=== PATIENT | female | born 1940 | race Two or more races ===

== ENCOUNTER 2024-02-01 11:14 | Outpatient (AMB) | payer MEDICAID, SELFPAY ==
[2024-02-01 11:17] VITALS: BP 110/65; PULSE 90; RESP 16; TEMP 36.4; O2SAT 93
--- NOTE | 2024-02-01 11:17 | PD.RESCLINIC ---
Vital Signs 02/01/24 11:17 Weight 68.266 kg Weight Measurement Method Standing Scale BP 110/65 Blood Pressure Source Automatic Cuff Blood Pressure Location Left Upper Arm Position Sitting Respiration 16 Pulse 90 Pulse Source Monitor Temp 97.5 F Temp Source Oral Pulse Oximetry (%) 93 L Oxygen Delivery Method Room Air Allergies/Meds Allergies & Medications Allergies No Known Allergies Allergy (Verified 02/01/24 11:18) Medication Reconciliation metformin 1,000 mg tablet (Glucophage) 1,000 mg PO BID #0 tabs 06/21/17 [History Confirmed 02/01/24] atorvastatin 10 mg tablet 10 mg PO QPM 07/16/19 [History Confirmed 02/01/24] donepezil 5 mg tablet 10 mg PO HS 07/16/19 [History Confirmed 02/01/24] montelukast 10 mg tablet 10 mg PO QPM 07/16/19 [History Confirmed 02/01/24] tiotropium bromide 18 mcg capsule with inhalation device (Spiriva with HandiHaler) 1 cap inhalation HS 07/16/19 [History Confirmed 02/01/24] empagliflozin 10 mg tablet (Jardiance) 10 mg PO QDAY 10/06/23 [History Confirmed 02/01/24] gabapentin 300 mg tablet 300 mg PO TID 10/06/23 [History Confirmed 02/01/24] memantine 5 mg tablet 5 mg PO BID 10/06/23 [History Confirmed 02/01/24] venlafaxine 37.5 mg tablet,extended release 24 hr 37.5 mg PO QDAY 10/06/23 [History Confirmed 02/01/24] apixaban 2.5 mg tablet (Eliquis) 5 mg (2 x 2.5 mg) PO BID #60 tabs 10/07/23 [Rx Confirmed 02/01/24] cephalexin 500 mg capsule 500 mg PO BID #12 caps 10/07/23 [Rx Confirmed 02/01/24] ferrous gluconate 236 mg (27 mg iron) tablet 236 mg PO QDAY #30 tabs 10/07/23 [Rx Confirmed 02/01/24] furosemide 20 mg tablet (Lasix) 20 mg PO Q OTHER DAY #30 tabs 10/07/23 [Rx Confirmed 02/01/24] metoprolol succinate 50 mg tablet,extended release 24 hr 50 mg PO QDAY #30 tabs 10/07/23 [Rx Confirmed 02/01/24] MA Intake Visit Data Collection New Patient or Established: Established Patient (seen at [facility] within 3 years) Seen by Clinical Staff ONLY (RN/MA): No Pain Present Currently: No Pain scale:: 0 Pain Scale Used: Peraza-Gomez/Numerical Can Slider Required: No Do You Feel Safe at Home: Yes Authorities Contacted: N/A Smoking Status Smoking Status: Never smoker Immunization / Flu Flu Vaccine in the Last 12 Months: No Flu Vaccine Exclusion Criteria: No Exclusion Criteria Past Medical History Past Medical History NEUROLOGIC: Positive Neurological Disorders and Dementia (age related); Negative Seizures CARDIAC: Positive Cardiac Disorders, Hypercholesterolemia and Hypertension; Negative Congestive Heart Failure RESPIRATORY: Positive Bronchitis; Negative Chronic Obstructive Pulmonary Disease (COPD) or Asthma GASTROINTESTINAL: Positive Gastrointestinal Disorders GENITOURINARY: Negative Genitourinary Disorders or Renal Disease REPRODUCTIVE: Positive Previous Pregnancies MUSCULOSKELETAL: Positive Arthritis ENDOCRINE: Positive Endocrine Disorders and Diabetes Mellitus Type 2; Negative Diabetes Mellitus Type 1 HEMATOLOGIC: Negative Blood Disorders or Sickle Cell Disease OTHER HISTORY: Negative Hospitalization, Autoimmune Disease, Down Syndrome, Developmental Delay, Shingles, Falls, Blood Transfusions, Blood Transfusion Reaction or Anesthesia Reactions Family History FAMILY HISTORY: Negative Family Psychiatric Problems, Family Respiratory Disorders, Family Cardiac Disorders, Family Gastrointestinal Problems, Family Cancer, Family Surgery or Family Anesthesia Reaction Social History SMOKING STATUS: Smoking status: Never smoker ALCOHOL: Alcohol Intake: Never HOUSING: Housing: House LIVES WITH: Lives With: Family Office Procedures [facility] Level of Care Nursing/Assessment Patient Status: Established Patient Nursing Assessment/Reassessment: Medication Reconciliation, Update PMH in EMR and Vital Signs Coordination of Care: Complex Care and Chronic Disease 1-5, Education Complex Pt/Fam, Results/Orders obtained and Staff clarify orders Established Patient Charge Established Patient Point Assignment: 90 Established Patient Point Charge: Level 3 (80-115)
--- NOTE | 2024-03-02 02:16 | PD.RESCLINIC ---
Vital Signs 02/01/24 11:17 Weight 68.266 kg Weight Measurement Method Standing Scale BP 110/65 Blood Pressure Source Automatic Cuff Blood Pressure Location Left Upper Arm Position Sitting Respiration 16 Pulse 90 Pulse Source Monitor Temp 97.5 F Temp Source Oral Pulse Oximetry (%) 93 L Oxygen Delivery Method Room Air Allergies/Meds Allergies & Medications Allergies No Known Allergies Allergy (Verified 02/01/24 11:18) Medication Reconciliation metformin 1,000 mg tablet (Glucophage) 1,000 mg PO BID #0 tabs 06/21/17 [History Confirmed 02/01/24] atorvastatin 10 mg tablet 10 mg PO QPM 07/16/19 [History Confirmed 02/01/24] donepezil 5 mg tablet 10 mg PO HS 07/16/19 [History Confirmed 02/01/24] montelukast 10 mg tablet 10 mg PO QPM 07/16/19 [History Confirmed 02/01/24] tiotropium bromide 18 mcg capsule with inhalation device (Spiriva with HandiHaler) 1 cap inhalation HS 07/16/19 [History Confirmed 02/01/24] empagliflozin 10 mg tablet (Jardiance) 10 mg PO QDAY 10/06/23 [History Confirmed 02/01/24] gabapentin 300 mg tablet 300 mg PO TID 10/06/23 [History Confirmed 02/01/24] memantine 5 mg tablet 5 mg PO BID 10/06/23 [History Confirmed 02/01/24] venlafaxine 37.5 mg tablet,extended release 24 hr 37.5 mg PO QDAY 10/06/23 [History Confirmed 02/01/24] apixaban 2.5 mg tablet (Eliquis) 5 mg (2 x 2.5 mg) PO BID #60 tabs 10/07/23 [Rx Confirmed 02/01/24] cephalexin 500 mg capsule 500 mg PO BID #12 caps 10/07/23 [Rx Confirmed 02/01/24] ferrous gluconate 236 mg (27 mg iron) tablet 236 mg PO QDAY #30 tabs 10/07/23 [Rx Confirmed 02/01/24] furosemide 20 mg tablet (Lasix) 20 mg PO Q OTHER DAY #30 tabs 10/07/23 [Rx Confirmed 02/01/24] metoprolol succinate 50 mg tablet,extended release 24 hr 50 mg PO QDAY #30 tabs 10/07/23 [Rx Confirmed 02/01/24] [place] Intake Visit Data Collection Do You Feel Safe at Home: Yes Smoking Status Smoking Status: Never smoker Past Medical History Past Medical History NEUROLOGIC: Positive Neurological Disorders and Dementia (age related); Negative Seizures CARDIAC: Positive Cardiac Disorders, Hypercholesterolemia and Hypertension; Negative Congestive Heart Failure RESPIRATORY: Positive Bronchitis; Negative Chronic Obstructive Pulmonary Disease (COPD) or Asthma GASTROINTESTINAL: Positive Gastrointestinal Disorders GENITOURINARY: Negative Genitourinary Disorders or Renal Disease REPRODUCTIVE: Positive Previous Pregnancies MUSCULOSKELETAL: Positive Arthritis ENDOCRINE: Positive Endocrine Disorders and Diabetes Mellitus Type 2; Negative Diabetes Mellitus Type 1 HEMATOLOGIC: Negative Blood Disorders or Sickle Cell Disease OTHER HISTORY: Negative Hospitalization, Autoimmune Disease, Down Syndrome, Developmental Delay, Shingles, Falls, Blood Transfusions, Blood Transfusion Reaction or Anesthesia Reactions Family History FAMILY HISTORY: Negative Family Psychiatric Problems, Family Respiratory Disorders, Family Cardiac Disorders, Family Gastrointestinal Problems, Family Cancer, Family Surgery or Family Anesthesia Reaction Social History SMOKING STATUS: Smoking status: Never smoker ALCOHOL: Alcohol Intake: Never HOUSING: Housing: House LIVES WITH: Lives With: Family Office Procedures [facility] Level of Care Nursing/Assessment Patient Status: Established Patient Nursing Assessment/Reassessment: Medication Reconciliation, Update PMH in EMR and Vital Signs Coordination of Care: Complex Care and Chronic Disease 1-5, Education Complex Pt/Fam, Results/Orders obtained and Staff clarify orders Established Patient Charge Established Patient Point Assignment: 90 Established Patient Point Charge: EP Level 3 (80-115)
== END 2024-02-01 11:58 | disposition home or self-care (01) ==
LOC: HODAHC 11:14
PROVIDERS: Supervising Provider Internal Medicine Cardiovascular Disease; Visit Provider Internal Medicine Cardiovascular Disease
DX: Z76.89 Persons encountering health services in other specified circumstances (principal)
CPT/HCPCS: 99213; G0463

== ENCOUNTER 2024-05-12 19:41 | Observation (INO) | payer MEDICAID, SELFPAY ==
[2024-05-12 21:02] VITALS: BP 129/70; PULSE 92; RESP 16; TEMP 36.4; O2SAT 96
[2024-05-12 21:05] VITALS: BMI 32.9
--- NOTE | 2024-05-12 21:15 | XR_ITS ---
Examination: CT brain head without contrast. 2-D sagittal coronal reconstructions Date and time of exam:May 12, 2024 2119 hrs. Indications: Headaches dizziness and nausea today CTDI: vol (mGy):45.5 DLP: (mGycm):940 Technique: Multiple CT axial sections of the brain have been obtained, 5 mm slice thickness. Contrast has not been administered. 2-D sagittal, coronal reconstructions have been obtained Low dose protocols were performed. One or more of the following dose reduction techniques were used; automated exposure control, adjustment of the mA and/or KV according to patient size, use of iterative reconstruction technique. Findings: No significant ventricular enlargement. Chronic frontal subdural hygromas, 9 mm thickness of the left 8 mm thickness on the right, no mass effect Intra-axial or extra-axial hemorrhage density is not seen. No mass effect or midline shift Basal cisterns are not remarkable. Fourth ventricle is midline. Cranial vault intact. Impression: Negative for acute hemorrhage, mass effect or midline shift
--- NOTE | 2024-05-12 21:15 | EKG_ITS ---
[facility] Test Date: 2024-05-12 Pat Name: JUDY OSORIO Department: Room: - Gender: Female [employer] Apprentice: : [id number] Requested By: Ashish Fox ([facility]) Order Number: [id number] Reading MD: Ashish Fox ([facility]) Measurements Intervals [place] Rate: 83 P: RI: QRS: 45 QRSD: 90 T: 33 QT: 384 QTc: 454 Interpretive Statements ATRIAL FIBRILLATION NONSPECIFIC T-WAVE ABNORMALITY ABNORMAL RHYTHM ECG Compared to ECG 10/04/2023 17:44:59 T-wave abnormality now present /store/S0/[id number]/[id number].pdf
--- NOTE | 2024-05-12 21:15 | XR_ITS ---
Examination: PA lateral chest 2 views Technique: Upright PA lateral chest 2 views Exam date and time: May 12, 20242123 hrs. Comparison October 04, 2023 Indications: Hypertension SOB today. Findings: Mild enlargement cardiac contour Prominent central pulmonary arteries Mild vascular congestion Mild opacity right base No driss pulmonary edema Impression: Mild vascular congestion Suspicious for pulmonary artery hypertension Mild opacity right base, consider early pneumonia, clinical correlation advised
--- NOTE | 2024-05-12 21:15 | PD.EDRME ---
Rapid Medical Screening Exam RME Arrival date/time: 05/12/24 19:41 83-year-old female presents emergency department complaining of headache and dizziness with nausea and vomiting that is been ongoing since May 05. Chief Complaint: Headache Time Seen by Provider: 05/12/24 21:12 Vital signs: Vital Signs Temperature 97.5 F 05/12/24 21:02 Pulse Rate 92 05/12/24 21:02 Respiratory Rate 16 05/12/24 21:02 Blood Pressure 129/70 05/12/24 21:02 Pulse Oximetry (%) 96 05/12/24 21:02 Oxygen Delivery Method Room Air 05/12/24 21:02 Vital signs reviewed by provider: Yes
[2024-05-12 22:11] LABS: Basophils # (Auto) 0.1 Thou/mm3 (0.0-0.2); Basophils % (Auto) 1 % (0-2.5); Eosinophils # (Auto) 0.3 Thou/mm3 (0.0-0.5); Eosinophils % (Auto) 3 % (0-10); Hematocrit 42.3 % (36.0-46.0); Hemoglobin 13.2 g/dL (12.0-16.0); Immature Granulocytes % (Auto) 1 % (0-0); Immature Granulocytes Auto 0.04 Thou/mm3 (0.00-0.00); Lymphocytes # (Auto) 1.7 Thou/mm3 (1.0-4.8); Lymphocytes % (Auto) 19 % (10-50); Mean Corpuscular HGB Conc 31.2 g/dl (31.0-37.0); Mean Corpuscular Hemoglobin 28.3 pg (25.0-35.0); Mean Corpuscular Volume 91 fL (80-100); Monocytes # (Auto) 0.8 Thou/mm3 (0.0-0.8); Monocytes % (Auto) 10 % (0-12); Neutrophils # (Auto) 5.9 Thou/mm3 (1.8-7.7); Neutrophils % (Auto) 67 % (37-80); Nucleated Red Blood Cell % 0 /100 WBC (0); Platelet Count 393 Thou/mm3 (140-440); RDW Standard Deviation 48.4 fL (36.4-46.3); Red Blood Count 4.67 Miln/mm3 (4.00-5.20); White Blood Count 8.8 Thou/mm3 (3.6-11.0)
[2024-05-12 22:28] LABS: B-Type Natriuretic Peptide 136 pg/mL (0-100)
[2024-05-12 22:30] LABS: Alanine Aminotransferase 12 U/L (10-49); Alkaline Phosphatase 77 U/L (46-116); Anion Gap 8 (7-16); Aspartate Amino Transferase 19 U/L (0-34); BUN/Creatinine Ratio 14 Ratio (12-20); Bilirubin,Total 0.3 mg/dL (0.3-1.2); Blood Urea Nitrogen 13 mg/dL (9-23); Carbon Dioxide 31.7 mMol/L (20.0-31.0); Chloride 95 mMol/L (98-107); Creatinine (Component) 0.9 mg/dL (0.6-1.3); Estimated Creatinine Clearance 42.2 mL/min (>60); Glucose 188 mg/dL (74-106); Magnesium 1.9 mg/dL (1.6-2.6); Osmolality,Calculated 275 (275-295); Potassium 3.8 mMol/L (3.4-5.1); Sodium 135 mMol/L (136-145); Troponin I < 0.020 ng/mL (0.0-0.045); eGFR > 60 See Note
[2024-05-12 22:41] LABS: INR 1.1 (0.9-1.3); Partial Thromboplastin Time 30.1 Seconds (22.0-36.0); Prothrombin Time 11.9 Seconds (9.0-12.2)
[2024-05-13] VITALS (10 sets, daily range): BP systolic 99–128; BP diastolic 54–79; PULSE 63–94; RESP 14–95; TEMP 36.1–36.9; O2SAT 93–99; BMI 32.9
[2024-05-13 00:28] LABS: Collection Type, Urine Clean Catch
[2024-05-13 00:45] LABS: Bilirubin,Urine Negative (Negative); Blood,Urine Negative (Negative); Clarity,Urine Clear (Clear/Hazy); Color,Urine Lt-Yellow (Lt Yel-Yel); Glucose, Urine 4+ (Negative); Ketones,Urine Negative (Negative); Leukocyte Esterase,Urine Positive (Negative); Nitrite,Urine Negative (Negative); PH,Urine 6.5 (5.0-7.0); Protein,Urine Negative (Neg - Trace); RBC,Urine 6 /hpf (0-3); Squamous Epithelial Cell,Urine 1 /hpf (0-5); Urobilinogen,Urine Negative mg/dL (0.0-1.0); WBC,Urine 22 /hpf (0-5)
--- NOTE | 2024-05-13 02:31 | XR_ITS ---
Examination: CT abdomen with intravenous contrast CT pelvis with intravenous contrast 2-D coronal reconstructions 2-D sagittal reconstructions Date and time of exam:May 11, 2024 0437 hrs. Comparison October 24, 2023 Indications: Epigastric pain onset today. CTDI: vol (mGy) 8.25 DLP: (mGycm) 438 Technique: Multiple axial sections of the abdomen and pelvis have been obtained. 64 slice high-resolution scanner used. 3 mm axial sections have been obtained, post intravenous injection 60 cc [id number] 2-D sagittal, coronal reconstructions obtained. Low dose protocols were performed. One or more of the following dose reduction techniques were used; automated exposure control, adjustment of the mA and/or KV according to patient size, use of iterative reconstruction technique. Findings: Mild to moderate enlargement cardiac contour Cirrhosis with moderate hepatomegaly, nodular contour of the liver with fatty infiltration Mild ascites No splenic or pancreatic lesion No hydronephrosis There is fluid filled small bowel loops in the left upper abdomen with wall thickening No definite appendicitis but clinical correlation advised Aortic calcification No bowel obstruction Atrophic uterus Urinary bladder intact Impression: Cirrhosis with moderate hepatomegaly Mild probable hepatic enteropathy
[2024-05-13] MEDS: cefTRIAXone/D5w 1gm IV premix 50 ML IV (02:55)
[2024-05-13 03:32] LABS: Troponin I < 0.020 ng/mL (0.0-0.045)
--- NOTE | 2024-05-13 04:42 | PRELIM_ITS ---
CT scan of the abdomen and pelvis with intravenous contrast (axial sections with sagittal and coronal reformats) May 13, 2024 at 0347 hoursClinical History: Epigastric abdominal pain.Comparison: No prior study is available for comparison. Findings:Bibasilar atelectasis is seen. There is mild hepat omegaly with relative nodular contour which may represent cirrhosis. There is hepatic hypodensities t oo small to characterize. There is left renal hypodensity too small to characterize. The gallbladder, pancreas, spleen and adrenals are unremarkable.There is mild wall thickening of proximal jejunal loo ps.No evidence of bowel obstruction. The appendix is not visualized. There is no mesenteric or retrop eritoneal adenopathy.The urinary bladder is incompletely distended at the time of the examination and appears mildly thick walled. There is atheromatous calcification of aorta; no evidence of aneurysm.T here is mild ascites. There is thickening and stranding of omental fat.There is no free air.There is diffuse osteopenia.There is anterolisthesis of L5 on S1.Impression:1. Mild wall thickening of proxima l jejunal loops; which may represent enteritis.2. Mild ascites with omental fat stranding. Infectious process cannot be excluded. Recommend clinical correlation. 3. Other findings as described above. Re port Electronically Signed By: Satya Vila 05/13/2024 4:40:59 AM [EST]
[2024-05-13 05:42] LABS: Basophils # (Auto) 0.1 Thou/mm3 (0.0-0.2); Basophils % (Auto) 1 % (0-2.5); Eosinophils # (Auto) 0.4 Thou/mm3 (0.0-0.5); Eosinophils % (Auto) 4 % (0-10); Hematocrit 40.7 % (36.0-46.0); Immature Granulocytes % (Auto) 0 % (0-0); Immature Granulocytes Auto 0.03 Thou/mm3 (0.00-0.00); Lymphocytes # (Auto) 1.9 Thou/mm3 (1.0-4.8); Lymphocytes % (Auto) 18 % (10-50); Mean Corpuscular HGB Conc 31.9 g/dl (31.0-37.0); Mean Corpuscular Hemoglobin 28.3 pg (25.0-35.0); Mean Corpuscular Volume 89 fL (80-100); Monocytes # (Auto) 0.9 Thou/mm3 (0.0-0.8); Monocytes % (Auto) 9 % (0-12); Neutrophils # (Auto) 7.2 Thou/mm3 (1.8-7.7); Neutrophils % (Auto) 68 % (37-80); Nucleated Red Blood Cell % 0 /100 WBC (0); Platelet Count 344 Thou/mm3 (140-440); RDW Standard Deviation 47.1 fL (36.4-46.3); Red Blood Count 4.59 Miln/mm3 (4.00-5.20); White Blood Count 10.5 Thou/mm3 (3.6-11.0)
--- NOTE | 2024-05-13 05:46 | ESHP_ITS ---
Documentation for date of: 05/13/24 [facility] History of Present Illness History of present illness: The patient is an 83-year-old female with a past medical history of hypertension, diabetes, HFpEF, A-fib, hyperlipidemia and dementia who presents to the ED by daughter on 05/12/2024 with complaints of nausea vomiting, headache, dizziness and confusion. Per daughter, the patient was in her usual state of health until 05/05/2024 when she complained of nausea and had about 2 episodes of vomiting, nonbloody and nonbilious. Shortly after this, patient reported right-sided dull headache no radiation as well as some lightheadedness. The symptoms, including vomiting have since resolved. However, patient continues to be confused and still has intermittent headaches and mild abdominal pain. Daughter also suspects that she is having visual hallucinations. At baseline, patient is said to be AAOx3 and able to carry out activities of daily living independently. However since onset of the symptoms, she has been unable to do any of the above and additionally is said to have an unsteady gait when she walks. There is no reported subjective fever or chills, cough or chest pain, difficulty breathing. She denies dysuria or any change in frequency or characteristics of urine. ED course: In the ED, patient was afebrile and saturating 97% on room air. Labs showed WBC 8.8 Hgb 13 point PLT 393 NA 130 5K3.8 CL 95 bicarb 31.7 BUN 13 CR 0.9 glucose 189 BNP 136. UA was also done and showed 4+ glucose and 22 WBCs but no bacteria Head CT was done which was negative for acute processes and chest x-ray showed mild vascular congestion with suspicion of PAH. EKG done showed A-fib flutter pattern, rate controlled preliminary read of CT abdomen pelvis showed some suspicion of enteritis. Patient is being admitted for acute encephalopathy rule out/management. Review of Systems Review of Systems Narrative Review of Systems: GENERAL: Denies fevers/chills or diaphoresis. HEENT: Admits headache, denies visual/hearing changes. Denies nasal discharge. NEURO: Denies unusual weakness or difficulty speaking. Admits unsteadiness in walking/gait CARDIO: Denies chest pain or palpitations. PULM: Denies SOB, coughing, or wheezing. GI: Admits resolved abdominal pain, nausea and vomiting URO: Denies burning/itching/pain/urinary changes. MSK/EXT/SKIN: Denies joint/skeletal/muscle pain, issues/changes in upper or lower extremities, itchiness, or superficial pain. PSYCH: Cooperative, pleasant mood & affect. Exam Vital Signs Temp Pulse Resp BP Pulse Ox O2 Del Method 97.5 F 77 15 128/69 94 L Room Air 05/12/24 21:02 05/13/24 02:47 05/13/24 02:47 05/13/24 02:47 05/13/24 02:47 05/13/24 02:47 Narrative Exam GENERAL: AAOX1, confused, unable to answer some questions but follows commands. NEURO:5/5 strength in all extremities, no numbness or loss of sensation. Gait unexamined. HEENT: Dry mucosa. Eyes open, symmetrical, & clear. CARDIO: No chest pain on palpation. Heart RRR, no obvious murmurs. PULM: No noted coughing/dyspnea. Lungs CTA B/L. GI: Abdomen soft, nondistended, no pain on palpation. BSx4. URO/FUNERAL PRE ARRANGEMENT SPECIALIST:: No further abnormalities noted. SKIN/MSK/EXT: No wounds/rashes/edema/amputations, no pain on palpation. Pedal pulses present B/L. Results: Labs 05/13/24 05:17 05/12/24 21:56 Labs: Short CBC 05/12/24 05/13/24 Range/Units 21:56 05:17 WBC 8.8 10.5 (3.6-11.0) Thou/mm3 Hgb 13.2 13.0 (12.0-16.0) g/dL Hct 42.3 40.7 (36.0-46.0) % Plt Count 393 344 D (140-440) Thou/mm3 BMP 05/12/24 21:56 Sodium 135 L Potassium 3.8 Chloride 95 L Carbon Dioxide 31.7 H BUN 13 Creatinine 0.9 Glucose 188 H Calcium 10.0 Cardiac Enzymes 05/12/24 05/13/24 Range/Units 21:56 02:48 Troponin I < 0.020 < 0.020 (0.0-0.045) ng/mL Liver Function 05/12/24 Range/Units 21:56 Total Bilirubin 0.3 (0.3-1.2) mg/dL AST 19 (0-34) U/L ALT 12 (10-49) U/L Alkaline Phosphatase 77 (46-116) U/L Albumin 4.0 (3.4-4.8) gm/dL Urine 05/13/24 Range/Units 00:20 Urine Color Lt-Yellow (Lt Yel-Yel) Urine Clarity Clear (Clear/Hazy) Urine pH 6.5 (5.0-7.0) Ur Specific [place] 1.030 (1.001-1.035) Urine Protein Negative (Neg - Trace) Urine Glucose (UA) 4+ A (Negative) Quality Measures Quality Measures VTE prophylaxis Advance care planning discussed with:: child Medications Home Medications and Allergies Home Medications ?Medication ?Instructions ?Recorded ?Confirmed ?Type metformin 1,000 mg tablet 1,000 mg PO BID #0 tabs 06/21/17 02/01/24 History (Glucophage) atorvastatin 10 mg tablet 10 mg PO QPM 07/16/19 02/01/24 History donepezil 5 mg tablet 10 mg PO HS 07/16/19 02/01/24 History montelukast 10 mg tablet 10 mg PO QPM 07/16/19 02/01/24 History tiotropium bromide 18 mcg capsule 1 cap inhalation HS 07/16/19 02/01/24 History with inhalation device (Spiriva with HandiHaler) empagliflozin 10 mg tablet 10 mg PO QDAY 10/06/23 02/01/24 History (Jardiance) gabapentin 300 mg tablet 300 mg PO TID 10/06/23 02/01/24 History memantine 5 mg tablet 5 mg PO BID 10/06/23 02/01/24 History venlafaxine 37.5 mg 37.5 mg PO QDAY 10/06/23 02/01/24 History tablet,extended release 24 hr Allergies Allergy/AdvReac Type Severity Reaction Status Date / Time No Known Allergies Allergy Verified 02/01/24 11:18 Visit Medications Acetaminophen (Acetaminophen 325 Mg Tablet) 650 mg PO Q6H PRN PRN Reason: Fever >101.5 or Pain 1-3 Stop: 06/12/24 05:17 Apixaban (Apixaban 2.5 Mg Tablet) 5 mg PO BID [facility] Stop: 06/12/24 08:59 Atorvastatin Calcium (Atorvastatin Calcium 10 Mg Tablet) 10 mg PO HS [facility] Stop: 06/12/24 20:59 Dextrose (Dextrose 50%-Water Inj 50 Ml Syringe) 25 ml IV Q15MIN PRN PRN Reason: BG 50-70 responsive npo pt Stop: 06/12/24 05:25 Dextrose (Dextrose 50%-Water Inj 50 Ml Syringe) 50 ml IV Q15MIN PRN PRN Reason: BG <50 OR BG <70 & pt unresponsive Stop: 06/12/24 05:25 Donepezil HCl (Donepezil Hcl 5 Mg Tablet) 10 mg PO HS [facility] Stop: 06/12/24 20:59 Duloxetine HCl (Duloxetine Hcl 30 Mg Capsule) 30 mg PO BID Y[facility] Stop: 06/12/24 08:59 Glucagon (Glucagon Inj 1 Mg Vial) 1 mg IM Q15MIN PRN PRN Reason: BG <70, and no IV access Sodium Chloride (Ns) 1,000 mls @ 75 mls/hr IV .[id number] [facility] Stop: 05/13/24 18:49 Ceftriaxone Sodium/Dextrose (Rocephin/D5w 1gm Iv Premix) 50 mls @ 100 mls/hr IV QDAY [facility] Stop: 05/20/24 05:23 Insulin Human Lispro (Insulin Lispro (Admelog) 1 Unit/0.01 Ml Unit) 0 unit SC AC YUNIER; Protocol Stop: 06/12/24 07:29 Memantine (Memantine Hcl 5 Mg Tablet) 10 mg PO BID [facility] Stop: 06/12/24 08:59 Metoprolol Succinate (Metoprolol Succinate Xl 25 Mg Tabcr) 50 mg PO QDAY [facility] Stop: 06/12/24 08:59 Ondansetron HCl (Ondansetron Inj 2 Mg/Ml Inj 2 Ml) 4 mg IV Q6H PRN; Protocol PRN Reason: NAUSEA OR VOMITING Stop: 06/12/24 05:17 Discontinued Medications Apixaban (Apixaban 2.5 Mg Tablet) 2.5 mg PO BID [facility] Stop: 06/12/24 08:59 Ceftriaxone Sodium/Dextrose (Rocephin/D5w 1gm Iv Premix) 50 mls @ 100 mls/hr IV X1 ONE Stop: 05/13/24 03:01 Last Infusion: 05/13/24 03:54 Dose: Infused Assessment & Plan Assessment Summary: The patient is an 83-year-old female with a past medical history of hypertension, diabetes, HFpEF, A-fib, hyperlipidemia and dementia who presents to the ED by daughter on 05/12/2024 with complaints of nausea vomiting, headache, dizziness and confusion. Patient is being admitted for acute encephalopathy rule out/management. #Acute Encephalopathy #History of dementia #?UTI The patient presented with an 8day history of nausea, vomiting, headache, dizziness and some confusion. Per daughter at bedside, she is AAOX3 at baseline and able to carry out a lot of her daily activities semi-independently. However since onset of symptoms, she has been unable to do any of her usual activites. Daughter additionally noted that she has been unstable and now staggers when she walks. She reports that her confusion has gotten progressively worse and suspects that she might also be having visuual hallucinations as she seems to be attempting to grab objects/people that are not in the room, Imaging on admission has been negative so far, except for a suspicion of enteritis as seen on CTAP. UA shows 22WBCs and positive esterase, but no bacteria. CBC and CMP unremarkable. Plan: -Admit to [facility] OBS -IV ceftriaxone 1 g daily -Ammonia -TSH #History of hypertension #History of hyperlipidemia The patient is on losartan hydrochlorothiazide as well as metoprolol and atorvastatin .-Restart home meds #History of A-fib Patient has a history of A-fib, rate controlled. She is not on any rate control medications currently, however takes Eliquis 5 mg twice daily restart -Restart home meds #History of dementia The patient takes donepezil and memantine -Restart home meds #History of diabetes Patient has a history of diabetes and is on Jardiance 10 mg daily. Last A1c done was on 09/2023-6.5. Glucose on admission-188 Plan: -ISS -Glucose check AC -Hypoglycemic protocols in place -HbA1c Health maintenance: Dispo: MedSurg Diet: Dysphagia DVT: Eliquis Nova: None Lines: Peripheral Med Rec: Pending, f/u PT: Ordered Code: Full Case was discussed with attending physician, Dr Jerod James MD PGY-1 Attending Provider Attestation/Addendum Pt was evaluated and plan formulated together with the housestaff team. I have reviewed the residents note above and agree with most of its content. Please refer to the residents note for additional details.
[2024-05-13 05:50] LABS: Ammonia < 10 uMol/L (11-32)
[2024-05-13 06:09] LABS: Glucose Estimated Average 169 mg/dL (80-131); Hemoglobin A1C 7.5 % Hgb (4.8-6.0)
[2024-05-13 06:14] LABS: Alanine Aminotransferase 10 U/L (10-49); Albumin/Globulin Ratio 1.1 (1.2-2.2); Alkaline Phosphatase 69 U/L (46-116); Anion Gap 7 (7-16); Aspartate Amino Transferase 14 U/L (0-34); BUN/Creatinine Ratio 19 Ratio (12-20); Bilirubin,Total 0.3 mg/dL (0.3-1.2); Blood Urea Nitrogen 15 mg/dL (9-23); Calcium 9.2 mg/dL (8.3-10.6); Calcium (Corrected) 9.2 mg/dL (8.5-10.1); Carbon Dioxide 30.8 mMol/L (20.0-31.0); Chloride 96 mMol/L (98-107); Creatinine (Component) 0.8 mg/dL (0.6-1.3); Estimated Creatinine Clearance 47.5 mL/min (>60); Globulin 3.6 gm/dL (2.3-3.5); Glucose 134 mg/dL (74-106); Magnesium 1.9 mg/dL (1.6-2.6); Osmolality,Calculated 271 (275-295); Potassium 4.1 mMol/L (3.4-5.1); Procalcitonin < 0.04 ng/ml (0.0-0.49); Sodium 134 mMol/L (136-145); Total Protein 7.6 gm/dL (5.7-8.2); eGFR > 60 See Note
[2024-05-13] MEDS: SODIUM CHLORIDE 0.9% 1000 ML 1,000 ML 75 ML IV (06:22)
[2024-05-13] MEDS: METOPROLOL SUCCINATE XL 25 MG TABCR 50 MG PO (09:21)
[2024-05-13] MEDS: APIXABAN 2.5 MG TABLET 5 MG PO ×2 (09:21→20:33)
--- NOTE | 2024-05-13 09:34 | PC.NURSE ---
report given to Mone aldana, patient will transfer to room 361
[2024-05-13] MEDS: MEMANTINE HCL 5 MG TABLET 10 MG PO ×2 (10:40→20:33)
[2024-05-13] MEDS: DULoxetine HCL 30 MG CAPSULE PO ×2 (10:40→20:33)
--- NOTE | 2024-05-13 11:58 | ESPR_ITS ---
<Statement entered by Eddie Oglesby MD - 05/29/24 09:28> I reviewed above note and agree with findings and plans. I have also personally examined the patient with medicine team and went over assessment and plan with medical team including news internship and resident physician. Documentation for date of: 05/13/24 Subjective Subjective Interval history: Patient speaks [place](indigineous dialect spoken in [place]). Daughter who speaks french is at bedside. She states that her only complaints now are these episodes during her sleep while laying down where she reaches out. She is also weak and off balance when she walks compared to previously. She has mild abdominal pain that she describes as bloating. She states that she has been told before that she has cirrhosis. She saw a GI doctor who told her that it wasn't actually liver cirrhosis. Exam Vital Signs Temp Pulse Resp BP Pulse Ox O2 Del Method 97.1 F 83 18 123/79 95 Room Air 05/13/24 10:36 05/13/24 10:36 05/13/24 10:36 05/13/24 10:36 05/13/24 10:36 05/13/24 10:36 Narrative Exam General: Well appearing, well nourished, in no distress HEENT: Normocephalic, atraumatic, conjunctiva clear, sclera non-icteric, EOM intact Heart: Regular rate and rhythm, no murmur or gallop Lungs: Clear to auscultation, no wheezes Abdomen: soft, non tender, non distended Extremities: No amputations or deformities, cyanosis, edema or varicosities, peripheral pulses intact Neurologic: No focal neuro deficits, moves all extremities spontaneously Psychiatric: Cooperative, normal mood and affect. Objective Labs 05/14/24 04:28 05/14/24 04:28 Labs: Laboratory Results - last 24 hr 05/12/24 05/13/24 05/13/24 21:56 00:20 02:48 WBC 8.8 RBC 4.67 Hgb 13.2 Hct 42.3 MCV 91 MCH 28.3 MCHC 31.2 RDW Std Deviation 48.4 H Plt Count 393 Neut % (Auto) 67 Lymph % (Auto) 19 Eddy % (Auto) 10 Eos % (Auto) 3 Baso % (Auto) 1 Neut # (Auto) 5.9 Lymph # (Auto) 1.7 Eddy # (Auto) 0.8 Eos # (Auto) 0.3 Baso # (Auto) 0.1 Immature Gran # (Auto) 0.04 H Absolute Nucleated RBC 0.00 Immature Gran % 1 H Nucleated RBC % 0 PT 11.9 INR 1.1 APTT 30.1 Sodium 135 L Potassium 3.8 Chloride 95 L Carbon Dioxide 31.7 H Anion Gap 8 BUN 13 Creatinine 0.9 Estim Creat Clear Calc 42.2 L eGFR > 60 BUN/Creatinine Ratio [address] Glu mg/dL Hemoglobin A1c Calculated Osmolality 275 Calcium 10.0 Corrected Calcium 10.0 Magnesium 1.9 Total Bilirubin 0.3 AST 19 ALT 12 Alkaline Phosphatase 77 Ammonia Troponin I < 0.020 < 0.020 B-Natriuretic Peptide 136 H Total Protein 8.0 Albumin 4.0 Globulin 4.0 H Albumin/Globulin Ratio 1.0 L Procalcitonin TSH Ur Collection Type Clean Catch Urine Color Lt-Yellow Urine Clarity Clear Urine pH 6.5 Ur Specific [place] 1.030 Urine Protein Negative Urine Glucose (UA) 4+ A Urine Ketones Negative Urine Blood Negative Urine Nitrite Negative Urine Bilirubin Negative Urine Urobilinogen (Auto) Negative Ur Leukocyte Esterase Positive Urine RBC 6 H Urine WBC 22 H Ur Squamous Epith Cells 1 Urine Bacteria None 05/13/24 05:17 WBC 10.5 RBC 4.59 Hgb 13.0 Hct 40.7 MCV 89 MCH 28.3 MCHC 31.9 RDW Std Deviation 47.1 H Plt Count 344 D Neut % (Auto) 68 Lymph % (Auto) 18 Eddy % (Auto) 9 Eos % (Auto) 4 Baso % (Auto) 1 Neut # (Auto) 7.2 Lymph # (Auto) 1.9 Eddy # (Auto) 0.9 H Eos # (Auto) 0.4 Baso # (Auto) 0.1 Immature Gran # (Auto) 0.03 H Absolute Nucleated RBC 0.00 Immature Gran % 0 Nucleated RBC % 0 PT INR APTT Sodium 134 L Potassium 4.1 Chloride 96 L Carbon Dioxide 30.8 Anion Gap 7 BUN 15 Creatinine 0.8 Estim Creat Clear Calc 47.5 L eGFR > 60 BUN/Creatinine Ratio 19 Glucose [address] Glu mg/dL 169 H Hemoglobin A1c 7.5 H Calculated Osmolality 271 L Calcium 9.2 Corrected Calcium 9.2 Magnesium 1.9 Total Bilirubin 0.3 AST 14 ALT 10 Alkaline Phosphatase 69 Ammonia < 10 L Troponin I B-Natriuretic Peptide Total Protein 7.6 Albumin 4.0 Globulin 3.6 H Albumin/Globulin Ratio 1.1 L Procalcitonin < 0.04 TSH 1.80 Ur Collection Type Urine Color Urine Clarity Urine pH Ur Specific [place] Urine Protein Urine Glucose (UA) Urine Ketones Urine Blood Urine Nitrite Urine Bilirubin Urine Urobilinogen (Auto) Ur Leukocyte Esterase Urine RBC Urine WBC Ur Squamous Epith Cells Urine Bacteria Quality Measures Quality Measures VTE prophylaxis Advance care planning discussed with:: patient and child Assessment & Plan Assessment Current Active Medications: Generic Name Dose Route Start Last Admin Trade Name Freq PRN Reason Stop Dose Admin Acetaminophen 650 mg 05/13/24 05:18 Acetaminophen 325 Mg Tablet PO 06/12/24 05:17 Q6H PRN Fever >101.5 or Pain 1-3 Apixaban 5 mg 05/13/24 09:00 05/13/24 09:21 Apixaban 2.5 Mg Tablet PO 06/12/24 08:59 5 mg BID YUNIER Administration Atorvastatin Calcium 10 mg 05/13/24 21:00 Atorvastatin Calcium 10 Mg Tablet PO 06/12/24 20:59 HS YUNIER Dextrose 25 ml 05/13/24 05:26 Dextrose 50%-Water Inj 50 Ml Syringe IV 06/12/24 05:25 Q15MIN PRN BG 50-70 responsive npo pt Dextrose 50 ml 05/13/24 05:26 Dextrose 50%-Water Inj 50 Ml Syringe IV 06/12/24 05:25 Q15MIN PRN BG <50 OR BG <70 & pt unresponsive Donepezil HCl 10 mg 05/13/24 21:00 Donepezil Hcl 5 Mg Tablet PO 06/12/24 20:59 HS YUNIER Duloxetine HCl 30 mg 05/13/24 09:00 05/13/24 10:40 Duloxetine Hcl 30 Mg Capsule PO 06/12/24 08:59 30 mg BID YUNIER Administration Glucagon 1 mg 05/13/24 05:26 Glucagon Inj 1 Mg Vial IM Q15MIN PRN BG <70, and no IV access Sodium Chloride 1,000 mls @ 75 mls/hr 05/13/24 05:30 05/13/24 06:22 Ns IV 05/13/24 18:49 75 mls/hr .[id number] YUNIER Administration Ceftriaxone Sodium/Dextrose 50 mls @ 100 mls/hr 05/14/24 09:00 Rocephin/D5w 1gm Iv Premix IV 05/21/24 08:59 QDAY YUNIER Insulin Human Lispro 0 unit 05/13/24 07:30 05/13/24 07:53 Insulin Lispro (Admelog) 1 Unit/0.01 Ml Unit SC 06/12/24 07:29 Not Given AC YUNIER Protocol Lactulose 20 gm 05/13/24 08:57 Lactulose Syrup 20 Gm/30 Ml Udc PO 06/12/24 08:59 BID PRN constipation Protocol Memantine 10 mg 05/13/24 09:00 05/13/24 10:40 Memantine Hcl 5 Mg Tablet PO 06/12/24 08:59 10 mg BID YUNIER Administration Metoprolol Succinate 50 mg 05/13/24 09:00 05/13/24 09:21 Metoprolol Succinate Xl 25 Mg Tabcr PO 06/12/24 08:59 50 mg QDAY YUNIER Administration Ondansetron HCl 4 mg 05/13/24 05:18 Ondansetron Inj 2 Mg/Ml Inj 2 Ml IV 06/12/24 05:17 Q6H PRN NAUSEA OR VOMITING Protocol Plan Summary: The patient is an 83-year-old female with a past medical history of hypertension, diabetes, HFpEF, A-fib, hyperlipidemia and dementia who presents to the ED by daughter on 05/12/2024 with complaints of nausea vomiting, headache, dizziness and confusion. Patient is being admitted for acute encephalopathy rule out/management. #Acute Encephalopathy 2/2 UTI #History of dementia #Visual Hallucinations The patient presented with an 8day history of nausea, vomiting, headache, dizziness and some confusion. Per daughter at bedside, she is AAOX3 at baseline and able to carry out a lot of her daily activities semi-independently. However since onset of symptoms, she has been unable to do any of her usual activites. Daughter additionally noted that she has been unstable and now staggers when she walks. She reports that her confusion has gotten progressively worse and suspects that she might also be having visuual hallucinations as she seems to be attempting to grab objects/people that are not in the room, UA shows 22WBCs and positive esterase, but no bacteria. CBC and CMP unremarkable. Head CT(-) -IV ceftriaxone 1 g daily -pending Urine culture -PT Eval #Possible Liver Cirrhosis CT AP shows cirrhosis with moderate hepatomegaly; Mild probable hepatic enteropathy; Mild ascites Patient states that they had outpatient workup earlier this year and the GI doctor did not believe she had Cirrhosis Ammonia <10 -Lactulose PRN #History of hypertension #History of hyperlipidemia Blood pressure has been normal, will monitor before restarting all of her BP meds .-Metoprolol 50mg QD -Atorvastatin 10mg PO QPM #History of A-fib Patient has a history of A-fib, rate controlled. -Metoprolol 50mg QD -Eliquis 5mg BID #History of dementia The patient takes donepezil and memantine -Restart home meds #History of diabetes Patient has a history of diabetes and is on Jardiance 10 mg daily. Last A1c done was on 09/2023-6.5; today 7.5 Glucose on admission-188 -ISS -Glucose check AC -Hypoglycemic protocols in place Health maintenance: Dispo: Med/Tele Diet: Dysphagia DVT: Eliquis Nova: None Lines: Peripheral Med Rec: Pending, f/u PT: Ordered Code: Full The patient's plan was discussed with attending Dr. Oglesby and senior resident Dr. Amy Calles, PGY1 Internal Medicine _ Patient is an 83-year-old female past medical history of hypertension, diabetes, HFpEF, A-fib on Eliquis, dementia, who was brought into the ER due to nausea vomiting as well as visual hallucinations, patient is attempting to reach out to grab things that are not present in the room. 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 Continue IV antibiotics for treatment of UTI. Also possible natural progression of dementia, possible Lewy body dementia leading to visual hallucinations. Amy PGY2
[2024-05-13] MEDS: INSULIN LISPRO (AdmeLOG) 1 UNIT/0.01 ML UNIT SC ×2 (12:14→17:04)
--- NOTE | 2024-05-13 13:17 | PCS.ST ---
SWALLOW EVAL COMPLETE. DISPLAY DECORATOR WILL FOLLOW UP FOR FORMAL SPEECH AND LANGUAGE EVALUATION NEEDED
[2024-05-13] MEDS: DONEPEZIL HCL 5 MG TABLET 10 MG PO (20:33)
[2024-05-13] MEDS: ATORVASTATIN CALCIUM 10 MG TABLET PO (20:33)
[2024-05-14] VITALS: BP 127/68; PULSE 86; RESP 17; TEMP 36.1; O2SAT 95
[2024-05-14 04:00] VITALS: BP 98/59; PULSE 78; RESP 18; TEMP 36.2; O2SAT 94
[2024-05-14 06:28] LABS: Basophils # (Auto) 0.1 Thou/mm3 (0.0-0.2); Basophils % (Auto) 1 % (0-2.5); Eosinophils # (Auto) 0.3 Thou/mm3 (0.0-0.5); Eosinophils % (Auto) 6 % (0-10); Hematocrit 37.2 % (36.0-46.0); Immature Granulocytes % (Auto) 0 % (0-0); Immature Granulocytes Auto 0.02 Thou/mm3 (0.00-0.00); Lymphocytes # (Auto) 1.6 Thou/mm3 (1.0-4.8); Lymphocytes % (Auto) 28 % (10-50); Mean Corpuscular HGB Conc 32.3 g/dl (31.0-37.0); Mean Corpuscular Hemoglobin 28.4 pg (25.0-35.0); Mean Corpuscular Volume 88 fL (80-100); Monocytes # (Auto) 0.7 Thou/mm3 (0.0-0.8); Monocytes % (Auto) 11 % (0-12); Neutrophils # (Auto) 3.2 Thou/mm3 (1.8-7.7); Neutrophils % (Auto) 54 % (37-80); Nucleated Red Blood Cell % 0 /100 WBC (0); Platelet Count 350 Thou/mm3 (140-440); RDW Standard Deviation 46.9 fL (36.4-46.3); Red Blood Count 4.22 Miln/mm3 (4.00-5.20); White Blood Count 5.8 Thou/mm3 (3.6-11.0)
[2024-05-14 06:49] VITALS: PULSE 65; RESP 16; RESP 94
[2024-05-14 06:52] LABS: Alanine Aminotransferase 8 U/L (10-49); Albumin, Serum 3.5 gm/dL (3.4-4.8); Albumin/Globulin Ratio 1.1 (1.2-2.2); Alkaline Phosphatase 59 U/L (46-116); Anion Gap 7 (7-16); Aspartate Amino Transferase 15 U/L (0-34); BUN/Creatinine Ratio 18 Ratio (12-20); Bilirubin,Total 0.3 mg/dL (0.3-1.2); Blood Urea Nitrogen 11 mg/dL (9-23); Calcium 8.6 mg/dL (8.3-10.6); Carbon Dioxide 29.7 mMol/L (20.0-31.0); Chloride 99 mMol/L (98-107); Creatinine (Component) 0.6 mg/dL (0.6-1.3); Estimated Creatinine Clearance 63.3 mL/min (>60); Globulin 3.1 gm/dL (2.3-3.5); Glucose 137 mg/dL (74-106); Osmolality,Calculated 273 (275-295); Potassium 3.8 mMol/L (3.4-5.1); Sodium 136 mMol/L (136-145); Total Protein 6.6 gm/dL (5.7-8.2); eGFR > 60 See Note
[2024-05-14 08:00] VITALS: BP 120/59; PULSE 63; RESP 18; TEMP 36.6; O2SAT 98
[2024-05-14] MEDS: MEMANTINE HCL 5 MG TABLET 10 MG PO (08:38)
[2024-05-14 08:39] VITALS: BP 120/59; PULSE 63
[2024-05-14] MEDS: cefTRIAXone/D5w 1gm IV premix 50 ML IV (08:39)
[2024-05-14] MEDS: DULoxetine HCL 30 MG CAPSULE PO (08:39)
[2024-05-14] MEDS: APIXABAN 2.5 MG TABLET 5 MG PO (08:39)
[2024-05-14] MEDS: METOPROLOL SUCCINATE XL 25 MG TABCR 50 MG PO (08:39)
[2024-05-14] MEDS: INSULIN LISPRO (AdmeLOG) 1 UNIT/0.01 ML UNIT SC ×2 (08:40→12:12)
[2024-05-14 12:00] VITALS: BP 133/74; PULSE 69; RESP 18; TEMP 35.8; O2SAT 94
--- NOTE | 2024-05-14 12:08 | ESDS_ITS ---
<Statement entered by Eddie Oglesby MD - 05/29/24 09:36> I reviewed above note and agree with findings and plans. I have also personally examined the patient with medicine team and went over assessment and plan with medical team including multicultural internship and resident physician. Planned Discharge Date 05/14/24 DS: Providers Provider Date of admission: 05/13/24 04:56 Primary care physician: Sylvia Marmolejo MD Admitting Provider: Newton Newsome MD Attending Provider on Admission: Newton Newsome MD Consults: 05/13/24 05:25 Referral Physical Therapy Routine Comment: Physician Instructions: 05/13/24 05:26 Referral Speech Therapy Stat Comment: Attending Provider on DC: Juan C Conner MD Discharging Provider: Juan C Conner MD DS: Diagnosis Problem List Completed Was Problem List Reviewed/Reconciled?: Yes Hospital Course Hospital Course Hospital course: 83-year-old female with a past medical history of hypertension, diabetes, HFpEF, A-fib, hyperlipidemia and dementia who presents to the ED by daughter on 05/12/2024 with complaints of nausea vomiting, headache, dizziness and confusion. Patient is admitted for acute encephalopathy secondary to Urinary tract infection. During hospital stay patient was treated with IV antibiotics namely ceftriaxone and patients mentation improved back to baseline and was alert, awake, orientedx3 at time of discharge. Patient with diabetes was managed with sliding scale insulin. Patient also had visual hallucinations on admission with after antibiotic treatment for urinary tract infection symptoms subsided. Patient was also managed for possible cirrhosis as evidenced by CT AP showing cirrhosis with moderate hepatomegaly and was given lactulose prn. Patient has hx of atrial fibrillation and home medication eliquis and metoprolol were resumed. Patient has hx of dementia for which memantine and donepezil were provided as taken at home. Patient at this time is medically stable for discharge. Patient instructed to follow up with primary care physician with labs within 3-5 days of discharge. Patient instructed if symptoms should recur or worsen, can return to the ED. Problem List: #Acute Encephalopathy-resolved #UTI-resolved #History of dementia #Visual Hallucinations #Possible Liver Cirrhosis #History of hypertension #History of hyperlipidemia #History of A-fib #History of dementia #History of diabetes Case discussed with my senior Dr. Reyes PGY-[address] Mendel Conner MD PGY-1 Senior resident attestation: Patient evaluated and examined at the bedside, plan of care discussed with rest of the team including my attending physician, except as noted. Amy PGY2 Status at Discharge Functional status at discharge: independent ambulation Overall status at discharge: patient is back to baseline Time Spent with Patient Time attestation: Total time spent providing and/or coordinating discharge services: Time spent: Greater than 30 minutes Exam Vital Signs Temp Pulse Resp BP Pulse Ox O2 Del Method 97.9 F 63 18 120/59 L 98 Room Air 05/14/24 08:00 05/14/24 08:39 05/14/24 08:00 05/14/24 08:39 05/14/24 08:00 05/14/24 08:00 Narrative Exam Physical Exam GENERAL: NAD, NC/AT, responsive/cooperative. A&Ox3 HEENT: Moist mucosa. Eyes open, symmetrical, & clear CARDIO: No chest pain on palpation. Heart RRR, no obvious murmurs PULM: No noted coughing/dyspnea. Lungs CTA B/L, no R/W/R GI: Abdomen soft, nondistended, no pain on palpation. BSx4 URO/FRAME CATCHER:: No further abnormalities noted. Nova catheter SKIN/MSK/EXT: No wounds/rashes/edema/amputations, no pain on palpation. Pedal pulses present B/L NEURO: AAOx3, no focal neuro deficits. Discharge Plan Plan Patient Disposition: HOME (Self Care) Care Plan Goals: Follow up with Primary care physician with labs within 3-5 days of discharge. If symptoms persist or worsen, return to the Emergency Department. Prescriptions/Referrals Prescriptions/Med Rec: New cephalexin 500 mg capsule 500 mg PO BID 5 Days Qty: 10 0RF pantoprazole [Protonix] 40 mg tablet,delayed release (DR/EC) 40 mg PO QDAY Qty: 10 0RF Continued metformin [Glucophage] 1,000 MG tablet 1,000 mg PO BID Qty: 0 donepezil 5 mg Tablet 10 mg PO HS atorvastatin 10 mg Tablet 10 mg PO QPM montelukast 10 mg Tablet 10 mg PO QPM tiotropium bromide [Spiriva with HandiHaler] 18 mcg Capsule, W/Inhalation Device 1 cap INHALATION HS memantine 5 mg Tablet 5 mg PO BID gabapentin 300 mg Tablet 300 mg PO TID Jardiance 10 mg Tablet 10 mg PO QDAY furosemide [Lasix] 20 mg tablet 20 mg PO Q OTHER DAY Qty: 30 1RF Eliquis 2.5 mg Tablet 5 mg PO BID Qty: 60 0RF metoprolol succinate 50 mg tablet extended release 24 hr 50 mg PO QDAY Qty: 30 1RF hydrochlorothiazide 25 mg Tablet 25 mg PO QDAY losartan 100 mg Tablet 100 mg PO QDAY duloxetine 30 mg Capsule,Delayed Release(Dr/Ec) 30 mg PO QDAY albuterol 90 mcg/actuation Aerosol 90 mcg INHALATION Q4H PRN (Reason: Shortness Of Breath) Referrals: Sylvia Marmolejo MD [Primary Care Provider] - Patient/Caregiver Discharge Instructions Education Materials: Urinary Tract Infections in Women, Understanding Urinary Tract ..., Sepsis, Understanding Sepsis Print Language: Cambodian Stand Alone Forms: Natasha Award Info., Patient Portal Info Letter, Work/Release Restrictions Discharge Order Discharge Orders: Discharge (Routine); Ordered 05/14/24 Ordered By: Donald Reyes Quality Discharge Quality Measures VTE prophylaxis
--- NOTE | 2024-05-14 12:33 | PC.SS ---
Follow up note: Pt is on IV antibiotic.
[2024-05-14 13:49] VITALS: BMI 13.0
--- NOTE | 2024-05-14 16:58 | PC.SS ---
SS met with dtr who confirmed demographic and contact information is correct on facesheet. Pt follows Dr. Desirae Marmolejo and last appointment was January 2024 and next appointment is 05-17-24. Dtr is does not have preference for Services. SS has informed Transfer Nurse, Cammy.
== END 2024-05-14 16:27 | disposition home or self-care (01) ==
LOC: SERX 21:56 → SERHOLD 05-13 05:35 → S3NX 05-13 10:17
PROVIDERS: Student in an Organized Health Care Education/Training Program; Admitting Provider Internal Medicine; Emergency Provider Emergency Medicine; PCP Obstetrics & Gynecology; Visit Provider Internal Medicine
DX: N39.0 Urinary tract infection, site not specified (principal); E78.5 Hyperlipidemia, unspecified; E11.9 Type 2 diabetes mellitus without complications; G93.49 Other encephalopathy; I11.0 Hypertensive heart disease with heart failure; I48.91 Unspecified atrial fibrillation; I50.32 Chronic diastolic (congestive) heart failure; K74.60 Unspecified cirrhosis of liver; F03.92 Unspecified dementia, unspecified severity, with psychotic disturbance
CPT/HCPCS: 36415; 70450; 71046; 74177; 80053; 81001; 82140; 83036; 83735; 83880; 84145; 84443; 84484; 85025; 85610; 85730; 87086; 92526; 92610; 93005; 96365; 97162; 99285; A4649; G0378; J0696; J1815; J7030; Q9967; A9270